=== PATIENT | male | born 1990 | race Caucasian/White ===

== ENCOUNTER 2021-01-27 16:42 | Emergency (ER) | payer SELFPAY ==
[~2021-01-27] VITALS: Ht 180.3 cm; Wt 74.8 kg
[2021-01-27 18:20] LABS: HEMATOCRIT 40 % (40-54); HEMOGLOBIN 14.2 G/DL (13.3-17.7); MEAN CORPUSCULAR HEMOGLOBIN 31 PG (25-34); MEAN CORPUSCULAR HGB CONC 35 G/DL (32-36); MEAN CORPUSCULAR VOLUME 89 FL (80-99); MEAN PLATELET VOLUME 9.9 FL (7.4-10.4); PLATELET COUNT 224 10^3/uL (130-400); WHITE BLOOD COUNT 4.2 10^3/uL (4.3-11.0)
[2021-01-27 18:21] LABS: BASOPHILS % (AUTO) 1 % (0-10); EOSINOPHILS % (AUTO) 2 % (0-10); LYMPHOCYTES % (AUTO) 31 % (12-44); MONOCYTES % (AUTO) 12 % (0-12); NEUTROPHILS # (AUTO) 2.3 X 10^3 (1.8-7.8); NEUTROPHILS % (AUTO) 54 % (42-75)
[2021-01-27 18:22] LABS: EOSINOPHILS # (AUTO) 0.1 10^3/uL (0.0-0.3); LYMPHOCYTES # (AUTO) 1.3 X 10^3 (1.0-4.0); MONOCYTES # (AUTO) 0.5 X 10^3 (0.0-1.0)
[2021-01-27 18:49] LABS: ALANINE AMINOTRANSFERASE 14 U/L (0-55); ALBUMIN 4.3 GM/DL (3.2-4.5); ALKALINE PHOSPHATASE 99 U/L (40-136); BILIRUBIN,TOTAL 0.2 MG/DL (0.1-1.0); BUN/CREATININE RATIO 9; CALCIUM 9.1 MG/DL (8.5-10.1); CARBON DIOXIDE 24 MMOL/L (21-32); CHLORIDE 105 MMOL/L (98-107); GFR ESTIMATED 115; GLUCOSE 104 MG/DL (70-105); POTASSIUM 3.9 MMOL/L (3.6-5.0); SALICYLATE < 0.3 MG/DL (5.0-20.0); SODIUM 142 MMOL/L (135-145); TOTAL PROTEIN 7.5 GM/DL (6.4-8.2)
[2021-01-27 18:50] LABS: ACETAMINOPHEN < 10 UG/ML (10-30)
--- NOTE | 2021-01-27 18:54 | ED Psychosocial ---
General Chief Complaint: Suicidal Ideation Risk Stated Complaint: SUICIDAL IDEATION Nursing Triage Note: PT ARRIVED BY PRIVATE VEHICLE WITH CHIEF COMPLAINT OF SUICIDAL IDEATION. [facility] BROUGHT PATIENT IN TO THE ED DUE TO SUICIDAL THOUGHTS/ACTIONS. PT WAS SNAPPING FAMILY ON SNAPCHAT WITH A GUN TO HIS HEAD SAYING HE WAS GOING TO KILL HIMSELF. ON ARRIVAL, PT WAS PUT IN OVERFLOW ROOM WITH OFFICER. VITALS WERE DONE, URINE WAS COLLECTED, BLOOD DRAW WAS DONE, AND EKG WAS OBTAINED. PATIENT STATED THERE WAS NO REASON FOR SUICIDAL THOUGHT AND STATED NEVER HAPPENED BEFORE, BUT HE TOLD DR. ALVES DIFFERENTLY THAT HE IS HAVING MARRIAGE PROBLEMS. Source: patient, RN notes reviewed History of Present Illness Date Seen by Provider: Jan 27, 2021 Time Seen by Provider: 18:11 Initial Comments 30-year-old male presenting with law enforcement due to concerns for suicidal thoughts. He had reportedly been sending Snapchat pictures with a gun to his head telling family members that he was going to kill himself. He states that this stress and suicidal thoughts were stemming from marital problems. He tommy es seeing a therapist himself or with his . He denies other medical problems. He denies any prior suicide attempts or psychiatric care. He has not done anything today to physically harm himself. He has drank several beers today. He initially presented shortly before 5 PM but at the same time he had a critical patient and he had to wait almost an hour before labs and tests were started. Law enforcement is staying with him and he is in protective custody. Associated Symptoms: suicidal ideation Allergies and Home Medications Allergies Coded Allergies: No Known Drug Allergies (Unverified , 01/27/21) Patient Home Medication List Home Medication List Reviewed: Yes Review of Systems Constitutional: No chills, No fever EENTM: no symptoms reported Respiratory: no symptoms reported Cardiovascular: no symptoms reported Gastrointestinal: no symptoms reported Genitourinary: no symptoms reported Musculoskeletal: no symptoms reported Skin: no symptoms reported Psychiatric/Neurological: Depressed, Emotional Problems (marital problems causing stress) Past Drtvdvd-Fyhgjd-Lixmkh Hx Patient Social History Tobacco Use?: Yes Tobacco type used: Cigarettes Smoking Status: Current Everyday Smoker Substance use?: No Alcohol Use?: Yes Alcohol Frequency: Once in a while Pt feels they are or have been: No Past Medical History Surgery/Hospitalization HX: Pt denies Physical Exam Vital Signs - First Documented 01/27/21 18:15 Temp 35.9 Pulse 79 Resp 16 B/P (MAP) 108/53 (71) Pulse Ox 98 O2 Delivery Room Air Capillary Refill : Less Than 3 Seconds Height, Weight, BMI Height: '" Weight: lbs. oz. 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, alert, oriented x 3 Appearance/Memory: appropriate appearance, neat Behavior/Eye Contact: cooperative, good eye contact Thoughts/Hallucinations: normal thought pattern Skin: normal color, warm/dry Progress/Results/Core Measures Results/Orders Lab Results Laboratory Tests Test 01/27/21 18:08 01/27/21 18:32 01/27/21 21:10 Range/Units White Blood Count 4.2 L 4.3-11.0 10^3/uL Red Blood Count 4.52 4.35-5.85 10^6/uL Hemoglobin 14.2 13.3-17.7 G/DL Hematocrit 40 40-54 % Mean Corpuscular Volume 89 80-99 FL Mean Corpuscular Hemoglobin 31 25-34 PG Mean Corpuscular Hemoglobin Concent 35 32-36 G/DL Red Cell Distribution Width 12.2 10.0-14.5 % Platelet Count 224 130-400 10^3/uL Mean Platelet Volume 9.9 7.4-10.4 FL Immature Granulocyte % (Auto) 0 % Neutrophils (%) (Auto) 54 42-75 % Lymphocytes (%) (Auto) 31 12-44 % Monocytes (%) (Auto) 12 0-12 % Eosinophils (%) (Auto) 2 0-10 % Basophils (%) (Auto) 1 0-10 % Neutrophils # (Auto) 2.3 1.8-7.8 X 10^3 Lymphocytes # (Auto) 1.3 1.0-4.0 X 10^3 Monocytes # (Auto) 0.5 0.0-1.0 X 10^3 Eosinophils # (Auto) 0.1 0.0-0.3 10^3/uL Basophils # (Auto) 0.0 0.0-0.1 10^3/uL Immature Granulocyte # (Auto) 0.0 0.0-0.1 10^3/uL Sodium Level 142 135-145 MMOL/L Potassium Level 3.9 3.6-5.0 MMOL/L Chloride Level 105 98-107 MMOL/L Carbon Dioxide Level 24 21-32 MMOL/L Anion Gap 13 5-14 MMOL/L Blood Urea Nitrogen 7 7-18 MG/DL Creatinine 0.80 0.60-1.30 MG/DL Estimat Glomerular Filtration Rate 115 BUN/Creatinine Ratio 9 Glucose Level 104 70-105 MG/DL Calcium Level 9.1 8.5-10.1 MG/DL Corrected Calcium 8.9 8.5-10.1 MG/DL Total Bilirubin 0.2 0.1-1.0 MG/DL Aspartate Amino Transf (AST/SGOT) 17 5-34 U/L Alanine Aminotransferase (ALT/SGPT) 14 0-55 U/L Alkaline Phosphatase 99 40-136 U/L Total Protein 7.5 6.4-8.2 GM/DL Albumin 4.3 3.2-4.5 GM/DL Salicylates Level < 0.3 L 5.0-20.0 MG/DL Acetaminophen Level < 10 L 10-30 UG/ML Serum Alcohol < 10 <10 MG/DL Urine Color YELLOW Urine Clarity CLEAR Urine pH 6.0 5-9 Urine Specific [place] 1.025 H 1.016-1.022 Urine Protein NEGATIVE NEGATIVE Urine Glucose (UA) NEGATIVE NEGATIVE Urine Ketones TRACE H NEGATIVE Urine Nitrite NEGATIVE NEGATIVE Urine Bilirubin NEGATIVE NEGATIVE Urine Urobilinogen 0.2 < = 1.0 MG/DL Urine Leukocyte Esterase NEGATIVE NEGATIVE Urine RBC (Auto) NEGATIVE NEGATIVE Urine RBC NONE /HPF Urine WBC 2-5 /HPF Urine Squamous Epithelial Cells RARE /HPF Urine Crystals NONE /LPF Urine Bacteria NEGATIVE /HPF Urine Casts PRESENT /LPF Urine Hyaline Casts 0-2 H /LPF Urine Mucus LARGE H /LPF Urine Culture Indicated NO Urine Opiates Screen NEGATIVE NEGATIVE Urine Oxycodone Screen NEGATIVE NEGATIVE Urine Methadone Screen NEGATIVE NEGATIVE Urine Propoxyphene Screen NEGATIVE NEGATIVE Urine Barbiturates Screen NEGATIVE NEGATIVE Ur Tricyclic Antidepressants Screen NEGATIVE NEGATIVE Urine Phencyclidine Screen NEGATIVE NEGATIVE Urine Amphetamines Screen NEGATIVE NEGATIVE Urine Methamphetamines Screen NEGATIVE NEGATIVE Urine Benzodiazepines Screen NEGATIVE NEGATIVE Urine Cocaine Screen NEGATIVE NEGATIVE Urine Cannabinoids Screen NEGATIVE NEGATIVE SARS-CoV-2 RNA (RT-PCR) Not Detected Not Detecte My Orders Orders - REBECCA ALVES MD Ua Culture If Indicated (01/27/21 16:47) Cbc With Automated Diff (01/27/21 16:47) Comprehensive Metabolic Panel (01/27/21 16:47) Alcohol (01/27/21 16:47) Drug Screen Stat (Urine) (01/27/21 16:47) Acetaminophen (01/27/21 16:47) Salicylate (01/27/21 16:47) Ekg Tracing (01/27/21 16:47) Status Checks/Observation Q15M (01/27/21 16:47) Covid 19 Inhouse Test (01/27/21 21:01) Vital Signs/I&O 01/27/21 01/28/21 18:15 01:29 Temp 35.9 35.9 Pulse 79 71 Resp 16 14 B/P (MAP) 108/53 (71) 112/62 Pulse Ox 98 100 O2 Delivery Room Air Room Air Blood Pressure Mean: 71 Progress Progress Note #1: Progress Note send labs and urine to medically examine him and clear him for psychiatric evalu ation. Progress Note #2: Time: 19:05 Progress Note Labs and electrocardiogram are stable with no acute significant normality. His alcohol drug screen is negative. He is medically stable and cleared for eval uation by mental health. Progress Note #3: Time: 20:48 Progress Note After mental health screening and screener spoke with patient's and family it was felt he was not safe to be discharged to home and required admit for psychiatrist evaluation and treatment. Progress Note #4: Time: 00:54 Progress Note COVID swab negative. [facility]waiting placement from [facility] Progress Note #5: Time: 01:08 Progress Note [facility] and Dr. Stevens accepting pt for admit. Initial ECG Impression Date: Jan 27, 2021 Initial ECG Impression Time: 18:41 Initial ECG Rate: 58 Initial ECG Rhythm: Normal Sinus Initial ECG Comparisson: No Previous ECG Available Comment Normal sinus rhythm with a heart rate of 58 bpm. TN interval 148 ms. He has early repolarization changes. No acute ST elevation. QT interval 446 ms with a QTc interval of 442 ms. There is no prior tracing available for comparison. Departure Impression Primary Impression: Depression with suicidal ideation Additional Impression: Marital problem Disposition: 65 XFER TO PSYCH HOSP/UNIT Condition: Stable Transfer Transfer Reason: Exceeds level of care (Psychiatric services) Time Spoke to Accepting Phy: 01:08 Transfer Progress Notes [facility] called back and stated pt accepted by Dr. Stevens to come to [facility]. Transfer Facility: [facility] Method of Transfer: Law Enforcement Departure-Patient Inst. Referrals: NO,LOCAL PHYSICIAN (PCP/Family) Primary Care Physician Patient Instructions: OUTPT MENTAL HEALTH SERVICES REBECCA ALVES MD Jan 27, 2021 18:54
[2021-01-27 18:57] LABS: BACTERIA,URINE NEGATIVE /HPF; BILIRUBIN,URINE NEGATIVE (NEGATIVE); CLARITY,URINE CLEAR; COLOR,URINE YELLOW; GLUCOSE, URINE (UA) NEGATIVE (NEGATIVE); KETONES,URINE TRACE (NEGATIVE); LEUKOCYTE ESTERASE ,URINE NEGATIVE (NEGATIVE); NITRITE,URINE NEGATIVE (NEGATIVE); PROTEIN,URINE NEGATIVE (NEGATIVE); SQUAMOUS EPITHELIAL CELL,UR RARE /HPF
[2021-01-27 18:58] LABS: HYALINE CASTS, URINE 0-2 /LPF
[2021-01-27 19:05] LABS: AMPHETAMINE SCREEN, URINE NEGATIVE (NEGATIVE); BARBITURATE SCREEN URINE NEGATIVE (NEGATIVE); BENZODIAZEPINES SCREEN URINE NEGATIVE (NEGATIVE); CANNABINOID SCREEN, URINE NEGATIVE (NEGATIVE); COCAINE SCREEN URINE NEGATIVE (NEGATIVE); METHADONE STAT NEGATIVE (NEGATIVE); METHAMPHETAMINE SCREEN URINE S NEGATIVE (NEGATIVE); OPIATE SCREEN URINE NEGATIVE (NEGATIVE); OXYCODONE STAT NEGATIVE (NEGATIVE); PROPOXYPHENE STAT NEGATIVE (NEGATIVE); TRICYCLIC ANTIDEPRESSANTS SCRE NEGATIVE (NEGATIVE)
[2021-01-28 01:29] VITALS: BP 112/62
== END 2021-01-28 01:29 ==
LOC: ER FS 16:44
DX: R45.851 Suicidal ideations (principal); F32.9 Major depressive disorder, single episode, unspecified; F17.210 Nicotine dependence, cigarettes, uncomplicated; Z63.0 Problems in relationship with spouse or partner; Z20.822 Contact with and (suspected) exposure to COVID-19
CPT/HCPCS: 36415; 80053; 80306; 81000; 85025; 87636; 93005; 99283; G0480 ×3; 80320; 80329